=== PATIENT | male | born 1960 | race Native Hawaiian/Other Pacific Islander ===

== ENCOUNTER 2022-01-02 11:37 | Outpatient (CLI) | payer OTHER ==
[2022-01-02 11:58] LABS: PLATELET COUNT 326 K/uL (142-355)
[2022-01-02 12:20] LABS: POTASSIUM 3.7 mmol/L (3.6-5.2)
== END 2022-01-02 20:38 | disposition home or self-care (01) ==
LOC: LABW 11:37
PROVIDERS: ATTEND Nurse Practitioner
DX: R06.02 Shortness of breath (principal); Z79.899 Other long term (current) drug therapy
CPT/HCPCS: 36415; 80053; 80061; 84439; 84443; 85027